=== PATIENT | male | born 1950 | race Caucasian/White ===

== ENCOUNTER 2024-08-03 16:41 | Inpatient (IN) ==
[2024-08-03 17:18] LABS: ABS Basophils 0.1 10^3/uL (0.0-0.1); ABS Eosinophils 0.5 10^3/uL (0.0-0.5); ABS Lymphocytes 1.4 10^3/uL (1.0-4.8); ABS Monocytes 0.6 10^3/uL (0.0-1.1); ABS Neutrophils 3.6 10^3/uL (1.5-7.6); Eosinophil % 8.6 %; Hematocrit 35.7 % (38-53); Hemoglobin 11.7 g/dL (13.2-16.3); Lymphocyte % 23.5 %; Mean Corpuscular Hemoglobin 30.7 pg (27-33); Mean Corpuscular Hgb Conc 32.8 g/dL (31-36); Mean Corpuscular Volume 93.8 fL (80-97); Mean Platelet Volume 7.3 fL (7.5-11.2); Nucleated Red Blood Cells % 0.1 %/100WBC (0.0-0.8); Platelet Count 296 10^3/uL (150-450); Red Blood Count 3.81 10^6/uL (4.06-5.63); Red Cell Distribution Width 15.5 % (12-17); White Blood Count 6.2 10^3/uL (3.6-10.2)
[2024-08-03 17:52] LABS: INR 1.63 (0.85-1.14)
[2024-08-03 18:00] LABS: Albumin 4.1 g/dL (3.2-5.2); Albumin/Globulin Ratio 1.3 (1-3); Calcium 9.4 mg/dL (8.6-10.3); Creatinine, Serum 1.1 mg/dL (0.67-1.17); Globulin 3.1 g/dL (2-4); Potassium 4.5 mmol/L (3.5-5.0); Total Bilirubin 0.2 mg/dL (0.2-1.0); Total Protein 7.2 g/dL (6.4-8.9); eGFR CKD-EPI 70.4 (>60)
[2024-08-03 18:15] LABS: TSH Ultra Thyroid Stim Horm 0.73 mcIU/mL (0.34-5.60)
[2024-08-03 18:21] LABS: Ferritin 13.6 ng/mL (24-336)
[2024-08-03 18:43] LABS: High Sensitivity Troponin 1 Hr 12 pg/mL (<20); Magnesium 1.8 mg/dL (1.9-2.7); Phosphorus 3.1 mg/dL (2.5-5.0)
[2024-08-03] MEDS: Enoxaparin 100 MG/ML SYR SUBCUT SCH (23:24)
[2024-08-04 05:16] LABS: ABS Eosinophils 0.6 10^3/uL (0.0-0.5); ABS Lymphocytes 1.7 10^3/uL (1.0-4.8); ABS Monocytes 0.6 10^3/uL (0.0-1.1); ABS Neutrophils 3.7 10^3/uL (1.5-7.6); Eosinophil % 9.2 %; Hematocrit 34.3 % (38-53); Hemoglobin 11.4 g/dL (13.2-16.3); Mean Corpuscular Hgb Conc 33.2 g/dL (31-36); Mean Corpuscular Volume 93.3 fL (80-97); Mean Platelet Volume 7.4 fL (7.5-11.2); Platelet Count 261 10^3/uL (150-450); Red Blood Count 3.67 10^6/uL (4.06-5.63); Red Cell Distribution Width 15.5 % (12-17); White Blood Count 6.6 10^3/uL (3.6-10.2)
[2024-08-04 05:41] LABS: Calcium 9.1 mg/dL (8.6-10.3); Creatinine, Serum 0.94 mg/dL (0.67-1.17); Magnesium 1.8 mg/dL (1.9-2.7); Potassium 4.3 mmol/L (3.5-5.0); eGFR CKD-EPI 85.1 (>60)
[2024-08-04] MEDS: CMCS:Epleronone 25 mg TAB (NF) PO SCH (08:56)
[2024-08-04] MEDS: FENOFIBRATE MICRONIZED 200 MG PO SCH (08:58)
[2024-08-04] MEDS: IMIQUIMOD 5% TOPICAL SCH (08:58)
[2024-08-04] MEDS ORDERED: Carvedilol 12.5 MG TAB (NF) PO SCH (09:00)
[2024-08-04] MEDS: Sulfur Hexaflouride MICROSPHR 25 MG VIAL IV PRN (14:15)
[2024-08-04] MEDS: Ferric Gluconate IV 250 MG in NS 0.9% 250 ml 200 ML IVPB SCH (18:11)
[2024-08-05 06:18] LABS: Calcium 9.1 mg/dL (8.6-10.3); Creatinine, Serum 0.95 mg/dL (0.67-1.17); Magnesium 1.8 mg/dL (1.9-2.7); Potassium 4.6 mmol/L (3.5-5.0)
[2024-08-05] MEDS ORDERED: Dextrose 50% Syringe 50 ml 25 GM/50 ML SYRINGE IV PUSH PRN (07:30)
[2024-08-05] MEDS: Magnesium Sulfate 2 gm BAG 2 GM/50 ML BAG IVPB ONE (09:07)
[2024-08-06 03:19] LABS: Calcium 9.2 mg/dL (8.6-10.3); Potassium 4.1 mmol/L (3.5-5.0)
[2024-08-07 06:44] LABS: Calcium 9.3 mg/dL (8.6-10.3); Creatinine, Serum 1.02 mg/dL (0.67-1.17); Magnesium 1.7 mg/dL (1.9-2.7); Potassium 4.2 mmol/L (3.5-5.0); eGFR CKD-EPI 77.1 (>60)
[2024-08-07] MEDS: Magnesium Sulfate 2 gm BAG 2 GM/50 ML BAG IVPB ONE (08:44)
[2024-08-07] MEDS: NS 0.9% 1000 ml BAG 1,000 ML IV SCH (08:56)
[2024-08-07] MEDS ORDERED: Naloxone 0.4 mg VIAL 0.4 mg/ml 1 ml VIAL IV PRN (10:37)
[2024-08-07] MEDS ORDERED: Metoclopramide 5 MG/ML VIAL (10 mg) IV PRN (10:37)
[2024-08-07] MEDS ORDERED: fentaNYL 100 mcg/2 ml 50 MCG/ML VIAL IV PRN (10:37)
[2024-08-07] MEDS ORDERED: Ondansetron 4 mg VIAL 2 MG/ML 2 ml VIAL IV PRN (10:37)
[2024-08-07] MEDS ORDERED: NS 0.45% 1000 ml BAG 1,000 ML IV SCH (11:00)
[2024-08-07] MEDS: Clindamycin 900 MG/D5W BAG 900 MG/50 ML BAG IVPB ONE (13:50)
[2024-08-07] MEDS ORDERED: Propofol 10 MG/ML 20 ML BTL ONE (15:30)
[2024-08-07] MEDS: Acetaminophen IV 1 GM/100ML 1,000 MG/100 ML BAG IV ONE (16:48)
[2024-08-07] MEDS: Lactated Ringers 1000 ml BAG 1,000 ML IV SCH (16:48)
[2024-08-07] MEDS: Buffered Lidocaine 1% SYRIN 1 ml INTRADERM ONE (16:48)
[2024-08-08 07:23] LABS: Calcium 8.9 mg/dL (8.6-10.3); Creatinine, Serum 0.97 mg/dL (0.67-1.17); Magnesium 1.8 mg/dL (1.9-2.7); Potassium 4.2 mmol/L (3.5-5.0); eGFR CKD-EPI 81.9 (>60)
[2024-08-08] MEDS: Magnesium Sulfate 2 gm BAG 2 GM/50 ML BAG IVPB ONE (09:05)
[2024-08-08 10:10] VITALS: BP 111/65
== END 2024-08-08 13:23 | disposition home or self-care (01) | DRG 309 ==
LOC: EDHOLD 16:41 → ED 16:41 → ICU 22:01 → SUATTDRO 22:01 → ICU 22:45 → MEDTELE 08-06 16:49
PROVIDERS: ADMIT Internal Medicine; ATTEND Hospitalist
PROC: CARDVER (ICD-10-PCS; 2024-08-07 14:15)